=== PATIENT | female | born 1975 | race Caucasian/White ===

== ENCOUNTER 2020-02-17 15:17 | Emergency (ER) | payer SELFPAY ==
[~2020-02-17] VITALS: Ht 154 cm; Wt 60.0 kg
--- NOTE | 2020-02-17 15:31 | NUR ---
When this RN went to room the patient, the patient was not in the waiting room. Notified registration to notify us if patient returns.
--- NOTE | 2020-02-17 15:48 | NUR ---
Pt was called at this time asking if she left and she stated she was up front. We informed her that we are ready for her.
[2020-02-17 16:06] VITALS: BP 140/81
--- NOTE | 2020-02-17 16:09 | ED EENT ---
History of Present Illness General Chief Complaint: General Problems/Pain Stated Complaint: EAR DRAINAGE Source: patient Exam Limitations: no limitations History of Present Illness Date Seen by Provider: Feb 17, 2020 Time Seen by Provider: 16:00 Initial Comments Presents with complaint of left ear pain and drainage for the past several days. Patient states history of cholesteatoma with multiple surgeries, last performed October 2018 at [facility] in [place]. Recently moved to this area and has not established care. Denies any recent injury or change to her hearing, however does frequently have pain and drainage from the left ear. Admits to ER nurse that she "does meth to help with pain." Allergies and Home Medications Patient Home Medication List Home Medication List Reviewed: Yes Review of Systems Review of Systems Constitutional: No fever, No malaise Eyes: No Symptoms Reported; Denies Blindness, Denies Blurred Vision, Denies Drainage Ears: See HPI; Denies Dizziness; Pain, Purulent Discharge Nose: no symptoms reported; denies clots, denies congestion Throat: no symptoms reported; denies pain, denies swelling, denies discharge Skin: No change in color, No lesions, No rash Neurological: Denies Numbness, Denies Paresthesia Past [id number] Hx Past Med/Social Hx: Reviewed Nursing Past Med/Soc Hx Patient Social History Alcohol Use: Denies Use Drug of Choice: meth Recent Foreign Travel: No Contact w/Someone Who Travel: No Physical Exam Height, Weight, BMI Height: '" Weight: lbs. oz. kg; BMI Method: General Appearance: WD/WN, no apparent distress Eyes: bilateral eye normal inspection, bilateral eye PERRL, bilateral eye EOMI Nose: normal inspection; No discharge, No sinus tenderness Mouth/Throat: normal mouth inspection, pharynx normal Neck: non-tender, supple Left external ear with normal appearance, normal canal without discharge or inflammation. Moderate pain to minimal touch and examination. Posterior wall of canal with scarring and yellow discoloration consistent with possible cholesteatoma Departure Impression Primary Impression: Ear pain, left Disposition: 01 HOME, SELF-CARE Condition: Stable Departure-Patient Inst. Decision time for Depature: 16:11 Referrals: MITCH FLORES MD NO,LOCAL PHYSICIAN (PCP) Primary Care Physician Patient Instructions: Outer Ear Infection Add. Discharge Instructions: Call Dr Flores (ENT) to schedule a follow up appointment to establish care for your chronic ear problems All discharge instructions reviewed with patient and/or family. Voiced understanding. Scripts Diclofenac Sodium (Diclofenac Sodium) 50 Mg Tablet. 50 MG PO DAILY, #10 TAB Prov: VAUGHN OLIVER DO 02/17/20 Ciprofloxacin HCl/Dexameth (Ciprodex Otic Suspension) 7.5 Ml Soln 7.5 ML OT BID for 7 Days, #1 EA Prov: VAUGHN OLIVER DO 02/17/20 VAUGHN OLIVER DO Feb 17, 2020 16:09
[2020-02-17] MEDS ORDERED: DICL50TA6 PO (16:11)
[2020-02-17] MEDS ORDERED: NF-CIPDEC OT (16:11)
== END 2020-02-17 16:15 | disposition home or self-care (01) ==
LOC: ER FS 15:19
DX: H92.02 Otalgia, left ear (principal)
CPT/HCPCS: 99281